=== PATIENT | male | born 1955 | race Two or more races ===

== ENCOUNTER → 2017-01-25 | Outpatient (REF) | payer OTHER ==
[2017-01-25 11:48] LABS: BASO % 0.6 % (0.0-1.0); EOS % 0.6 % (0.0-3.0); LYMPH # 1.1 10^3/uL (1.5-4.5); LYMPH % 32.2 % (24.0-44.0); MEAN CORPUSCULAR HEMOGLOBIN 31.2 pg (27.0-33.0); MEAN CORPUSCULAR HGB CONC 34.8 g/dl (32.0-36.5); MEAN CORPUSCULAR VOLUME 89.7 fl (80.0-96.0); MONO # 0.3 10^3/uL (0.0-0.8); MONO % 8.8 % (0.0-5.0); NEUTROPHILS % 57.8 % (36.0-66.0); PLATELET COUNT, AUTOMATED 242 10^3/uL (150-450); RED CELL DISTRIBUTION WIDTH 11.9 % (11.5-14.5); WHITE BLOOD COUNT 3.5 10^3/uL (4.0-10.0)
[2017-01-25 12:19] LABS: ALBUMIN 4.3 GM/DL (3.2-5.2); ALBUMIN/GLOBULIN RATIO 1.59 (1.00-1.93); ALKALINE PHOSPHATASE 67 U/L (45-117); ALT/SGPT 21 U/L (12-78); ANION GAP 7 MEQ/L (8-16); AST/SGOT 13 U/L (7-37); BILIRUBIN,TOTAL 0.7 MG/DL (0.2-1.0); BLOOD UREA NITROGEN 12 MG/DL (7-18); CARBON DIOXIDE LEVEL 27 MEQ/L (21-32); CHLORIDE LEVEL 104 MEQ/L (98-107); CHOLESTEROL LEVEL 159 MG/DL (<200); CREATININE FOR GFR 0.78 MG/DL (0.70-1.30); GLOMERULAR FILTRATION RATE > 60.0 (>49); GLUCOSE, FASTING 83 MG/DL (80-110); SODIUM LEVEL 138 MEQ/L (136-145); TRIGLYCERIDES LEVEL 29 MG/DL (<150)
== END ==
LOC: M SFHCCLAY 08:49
PROVIDERS: ATTEND Family Medicine
DX: D64.9 Anemia, unspecified (principal); Z13.220 Encounter for screening for lipoid disorders; Z12.5 Encounter for screening for malignant neoplasm of prostate
CPT/HCPCS: 80053; 80061; 83540; 85025; G0103

== ENCOUNTER 2018-06-05 10:03 | Inpatient (IN) | payer OTHER ==
[~2018-06-05] VITALS: Ht 170.2 cm; Wt 61.7 kg
--- NOTE | 2018-07-19 16:18 | HPE ---
DATE OF ADMISSION: 07/25/2018 CHIEF COMPLAINT: Left hip pain. HISTORY OF PRESENT ILLNESS: Melo is a pleasant, 62-year-old male with progressively worsening left hip pain and stiffness. He has failed to improve with conservative treatment. He has elected for surgery for his continued symptoms. He has pain with weightbearing activities and his activities of daily living. X-rays of his hip are notable for advanced osteoarthritis of the left hip joint. He has consented for a left total hip arthroplasty by Dr. Baldemar Harrison. Medical optimization was not requested. ALLERGIES: None. CURRENT MEDICATIONS: None. PAST MEDICAL HISTORY: None. PAST SURGICAL HISTORY: Right knee arthroscopy for medial meniscus debridement. SOCIAL HISTORY: This patient is retired. Does not smoke. Occasionally drinks alcohol. FAMILY HISTORY: Is noncontributory. REVIEW OF SYSTEMS: This patient denies chest pain, heart palpitations, cough, wheezing, difficulty breathing and shortness of breath. He denies abdominal pain, nausea, vomiting, diarrhea or constipation. He denies recent upper respiratory infection or urinary tract infection symptoms. He does complain of persistent pain in his left hip and pain with weightbearing activities of the left hip. PHYSICAL EXAMINATION: General: He is a well-developed, well-nourished, in no acute distress, alert male patient who ambulates with a mild limp favoring the left lower extremity. He is not using assistive devices. Vital signs: He is 67 inches tall, weighs 140 pounds with a temperature of 97.1, blood pressure 118/80, pulse of 56, and respirations of 16. Neck was supple without adenopathy or jugular venous distension. There were no carotid bruits appreciated upon auscultation. Lungs were clear to auscultation without rales or wheeze throughout. Heart: Regular rate and rhythm. Abdomen: Bowel sounds were present. Extremities: Examination of the hip revealed intact skin. He had decreased range of motion with internal, external rotation secondary to pain and stiffness. The leg was neurovascularly intact. LABORATORY DATA: EKG showed marked sinus bradycardia of 4 beats per minute. Chest x-ray showed no acute cardiopulmonary disease processes. ProTime was 13.2, INR 0.99. Glucose 85, BUN 11, creatinine 0.72, sodium 136, potassium 4.1. CBC showed a hematocrit of 39.9, otherwise within normal limits with a sed rate of 3. IMPRESSION: Symptomatic osteoarthritis of the left hip joint. PLAN: Consented for a left total hip by Dr. Baldemar Harrison. edited: 07/27/2018 1043 tkf MTDD
[2018-07-25] MEDS ORDERED: CelecoXIB 400 MG CAP PO ONE (06:00)
[2018-07-25] MEDS ORDERED: PREGABALIN 50 MG CAP (LYRICA) PO ONE (06:00)
[2018-07-25] MEDS ORDERED: LR 1,000 ML IV ONE (06:00)
[2018-07-25] MEDS ORDERED: LIDOCAINE 1% MDV 20ML VIAL SQ PRN (06:00)
[2018-07-25] MEDS ORDERED: PERCOCET 5MG/325MG TAB PO ONE (06:00)
[2018-07-25] MEDS ORDERED: MIDAZOLAM INJ 2 MG/2 ML VIAL (J2250) As Ordered ONE (12:28)
[2018-07-25] MEDS ORDERED: PROPOFOL 500 MG/50 ML VIAL As Ordered ONE (12:29)
[2018-07-25] MEDS ORDERED: ONDANSETRON 4MG/2ML VIAL (J2405) As Ordered ONE (12:31)
[2018-07-25] MEDS ORDERED: BUPIVACAINE HCL 0.5% 30 ML VIAL As Ordered ONE (12:34)
[2018-07-25] MEDS ORDERED: BUPIVACAINE/EPIN 0.25% 30 ML VIAL As Ordered ONE (12:38)
[2018-07-25] MEDS ORDERED: TRANEXAMIC ACID 100 MG/ML 10ML VIAL As Ordered ONE (12:38)
[2018-07-25] MEDS ORDERED: BUPIVACAINE LIPOSOME/PF 1.3% 20ML VIAL (13.3MG/ML)(EXPAREL)(C9290 PER1MG) As Ordered ONE (12:39)
[2018-07-25] MEDS ORDERED: BUPIVACAINE HCL 0.5% 10 ML VIAL As Ordered ONE (12:39)
[2018-07-25] MEDS ORDERED: EPINEPHrine INJ 1 MG/ML 1ML AMP As Ordered ONE (12:39)
[2018-07-25] MEDS ORDERED: ceFAZolin 1GM INJ (J0690 PER 500MG) As Ordered ONE (12:39)
[2018-07-25] MEDS ORDERED: LIDOCAINE 2% INJ 100 MG/5 ML SDV (FOR ANES.) As Ordered ONE (13:30)
[2018-07-25] MEDS ORDERED: ePHEDrine SULFATE 25 MG/5 ML(5MG/ML) SYRINGE As Ordered ONE (14:48)
[2018-07-25] MEDS ORDERED: PHENYLephrine HCL 500 MCG/5 ML (100MCG/ML) SYRINGE (J2370) As Ordered ONE (14:48)
[2018-07-25] MEDS ORDERED: fentaNYL 100 MCG/2 ML INJECTION (J3010) IV PRN (16:15)
[2018-07-25] MEDS ORDERED: PERCOCET 5MG/325MG TAB PO PRN (16:15)
[2018-07-25] MEDS ORDERED: oxyCODONE 5MG TAB PO PRN (16:15)
[2018-07-25] MEDS ORDERED: NORTRIPTYLINE 10 MG CAP PO PRN (16:15)
[2018-07-25] MEDS ORDERED: LR 1,000 ML IV SCH (16:15)
[2018-07-25] MEDS ORDERED: METOCLOPRAMIDE INJ 10MG/2ML VIAL (J2765) IV PRN (16:15)
[2018-07-25] MEDS ORDERED: ACETAMINOPHEN TAB 650MG DOSE (2X325MG) PO PRN (16:15)
[2018-07-25] MEDS ORDERED: PROMETHAZINE INJ 25 MG/ML VIAL (J2550) IV PRN ×2 (16:15)
[2018-07-25] MEDS ORDERED: FLEET ENEMA PR PRN (16:30)
[2018-07-25] MEDS ORDERED: CYCLOBENZAPRINE 10 MG TAB PO PRN (16:30)
[2018-07-25] MEDS ORDERED: HYDROMORPHONE HCL 0.5 MG/ 0.5 ML SYRINGE (J1170 PER 1) IV PRN (16:30)
--- NOTE | 2018-07-25 16:34 | REP ---
AP LATERAL LEFT HIP, TWO VIEWS: HISTORY: Post-op. The patient is status-post left total hip replacement. There is no acute fracture or dislocation. Subcutaneous air is present in the overlying soft tissue. IMPRESSION:The patient is status-post left total hip replacement. There is anatomic alignment. Electronically Signed by Uriel Russo MD 07/25/2018 04:39 P
[2018-07-25] MEDS ORDERED: RIVAROXABAN 10 MG TAB (XARELTO) PO SCH (18:00)
[2018-07-25] MEDS ORDERED: oxyCODONE 5MG TAB As Ordered ONE (18:07)
[2018-07-25 18:45] VITALS: BP 144/55
--- NOTE | 2018-07-25 18:48 | RO ---
DATE OF PROCEDURE: 07/25/2018 PREOPERATIVE DIAGNOSIS: Left hip severe degenerative change and arthritis/osteoarthritis of the left hip. POSTOPERATIVE DIAGNOSIS: Left hip severe degenerative change and arthritis/osteoarthritis of the left hip. PROCEDURE PERFORMED: Left total hip replacement. SURGEON: Dr. Baldemar Harrison DEBURRING AND TOOLING MACHINE OPERATOR: Dr. Eleanor Salcedo ANESTHESIA: Spinal. ESTIMATED BLOOD LOSS: Less than 50 mL, replaced with crystalloid. No complications. COMPONENTS USED: Include a DePuy Emmons hip system, size 6 femoral stem, size 8.5 neck length, size 36 mm ceramic femoral head, size 36 mm ALTRX acetabular liner, size 58 mm acetabular shell, apex hole eliminator. INDICATIONS: Progressive discomfort in the left hip. The patient has elected for operative intervention. Consent reviewed in detail with the patient including a nadine discussion of the pathology involved, the procedure proposed, alternatives including doing nothing, risks including but not limited to pain, failure, infection, bleeding, blood loss, incomplete relief of symptoms, need for additional surgery and other issues. The patient agrees to proceed. DESCRIPTION OF PROCEDURE: Identified in the holding area, site and side verified, brought to the operating room once spinal anesthesia was administered. We positioned him in the lateral decubitus position for a modified Hardinge approach of the left hip on the [place] frame. The patient was sterilely prepped, draped in the usual fashion. Next, time-out was accomplished. Next, once I and the plant technician were comfortable with the patient's positioning, he was sterilely prepped and draped in the usual fashion. The incision was 12 cm long, outlined with a marking pen, infiltrated with 0.25% Marcaine with epinephrine, made with a 10 blade knife, developed down through skin and subcuticular tissues to the lateral fascia. Lateral fascia was split parallel with its fibers. Next, once this was accomplished at the anterior one-third position, we developed an interval between the abductor mechanism. Dr. Salcedo secured Meyerding retractor, I split the capsule and minimus tissue with the Bovie cautery and released the abductor mechanism from the anterior trochanter, leaving a cuff of tissue for later repair, did utilize a tag stitch, continued the dissection inferiorly splitting the vastus lateralis and released the capsule so that the lesser trochanter could be palpated. Dr. Salcedo then positioned a bone hook and then we dislocated the hip in the usual fashion. Femoral head was grossly degenerative. Trochanteric retractors were placed. Canal opening reamer was utilized to open the canal, followed by the finding reamer, followed by the lateralizing reamer, followed by serial reaming through a size 6, which seemed to fit appropriately. The neck template was installed. I utilized the oscillating saw to make the femoral neck cut, femoral head was removed. The cut was about one-half fingerbreadth from the lesser trochanter. Next, once this was accomplished, we positioned the hip out of the bag for exposure of the acetabulum. Anterior and posterior retractors were placed. Next, acetabular labrum was removed and the acetabular fossa was cleared of soft tissue. Transverse acetabular ligament was also released. This improved the acetabular exposure. Acetabular reaming was accomplished beginning with a size 50 and progressing through a size 57. We placed a trial size 58 acetabular shell, which seemed to fit appropriately. Next, we selected a size 58 non-trial acetabular shell, selected a sector cup in case we felt the need to place acetabular screws. The targeting device was utilized to assist cup placement. Irrigation was accomplished, TXA was placed in the wound. The acetabular shell was placed and impacted into place. We verified the shell was in the floor of the acetabulum, placed the apex hole eliminator. Next, the polyethylene liner, non-trial, was then installed. Next, we then turned our attention to the femoral side. The size 6 broach was installed. We trialed with a size +5 and also an 8.5 with a 36 mm head standard offset seemed to fit appropriately, providing stability, good alignment, good length. We selected that +8.5. Next, the hip was again dislocated by Dr. Salcedo. I then removed the trial stem, the femoral head. We then irrigated. I also instilled approximately 30 mL of Exparel in around the hip capsule at this stage. Next, non-trial femoral stem was obtained, installed, tamped into place. Non-trial ceramic femoral head was installed, tamped into place, hip was again reduced, again placed through a range of motion, appreciated to be extremely stable. Irrigation was again accomplished. Capsule and minimus tissues were reapproximated with interrupted stitch. Medius/abductor mechanism was reapproximated with interrupted and mattress stitches. Vastus lateralis was reapproximated with a running stitch, lateral fascia was approximated with interrupted stitch and a Stratafix stitch. Next, Gracie's fascia and deep dermis were reapproximated with interrupted stitch. Prineo dressing was utilized on the skin. The patient was log-rolled to the supine position and able to be moved to the hospital bed in good condition at the conclusion of the case. For further details, please refer to the medical record. Dr. Eleanor Salcedo was present and participated in the entirety of the case. Incidentally, Mr. Hughes was present for this case, our physician medical receptionist assistant, assisted on the back table, so we did not require a second surgical scrub.
[2018-07-25 19:15] VITALS: BP 126/79
[2018-07-25] MEDS: ASCORBIC ACID 500 MG TAB PO SCH (20:13)
[2018-07-25] MEDS: LR 1,000 ML IV SCH (20:15)
[2018-07-25] MEDS: PERCOCET 5MG/325MG TAB PO PRN (21:58)
[2018-07-26] MEDS: LR 1,000 ML IV SCH (03:02)
[2018-07-26 05:05] VITALS: BP 100/60
[2018-07-26 05:19] VITALS: BP 93/55
[2018-07-26 06:00] LABS: HEMATOCRIT 28.5 % (42.0-52.0); HEMOGLOBIN 9.8 g/dl (13.5-17.5); MEAN CORPUSCULAR HEMOGLOBIN 31.7 pg (27.0-33.0); MEAN CORPUSCULAR HGB CONC 34.4 g/dl (32.0-36.5); MEAN CORPUSCULAR VOLUME 92.2 fl (80.0-96.0); PLATELET COUNT, AUTOMATED 137 10^3/uL (150-450); RED BLOOD COUNT 3.09 10^6/uL (4.30-6.10); WHITE BLOOD COUNT 6.9 10^3/uL (4.0-10.0)
[2018-07-26] MEDS: PERCOCET 5MG/325MG TAB PO PRN (07:12)
[2018-07-26] MEDS ORDERED: XARE10TA PO (07:57)
[2018-07-26] MEDS ORDERED: PERC5TAB12 PO (07:57)
[2018-07-26] MEDS ORDERED: MOM 30ML SUSPENSION UDC PO SCH (09:00)
[2018-07-26] MEDS ORDERED: CelecoXIB 400 MG CAP PO ONE (09:00)
[2018-07-26] MEDS ORDERED: MIRALAX *UNIT DOSE* 17GM PACKET PO SCH (09:00)
[2018-07-26] MEDS: ASCORBIC ACID 500 MG TAB PO SCH (10:00)
[2018-07-26] MEDS ORDERED: RIVAROXABAN 10 MG TAB (XARELTO) PO SCH (18:00)
== END 2018-07-26 10:45 | disposition home or self-care (01) | DRG 470 ==
LOC: M OR 07-25 11:48 → M MS5PR 07-25 18:35
PROVIDERS: ADMIT Orthopaedic Surgery; ATTEND Orthopaedic Surgery
PROC: 0SRB04Z Replacement of Left Hip Joint with Ceramic on Polyethylene Synthetic Substitute, Open Approach (ICD-10-PCS; principal; 2018-07-25 13:30)
DX: M16.12 Unilateral primary osteoarthritis, left hip (principal)

== ENCOUNTER → 2018-06-13 | Outpatient (CLI) | payer OTHER ==
[2018-06-13 11:03] LABS: HEMATOCRIT 39.9 % (42.0-52.0); HEMOGLOBIN 13.8 g/dl (13.5-17.5); MEAN CORPUSCULAR HEMOGLOBIN 31.8 pg (27.0-33.0); MEAN CORPUSCULAR HGB CONC 34.6 g/dl (32.0-36.5); MEAN CORPUSCULAR VOLUME 91.9 fl (80.0-96.0); PLATELET COUNT, AUTOMATED 239 10^3/uL (150-450); RED BLOOD COUNT 4.34 10^6/uL (4.30-6.10); WHITE BLOOD COUNT 5.4 10^3/uL (4.0-10.0)
[2018-06-13 11:13] LABS: INR 0.99; PROTHROMBIN TIME 13.2 SECONDS (12.1-14.4)
[2018-06-13 11:34] LABS: ALBUMIN 4.3 GM/DL (3.2-5.2); ALT/SGPT 21 U/L (12-78); BILIRUBIN,TOTAL 0.8 MG/DL (0.2-1.0); BLOOD UREA NITROGEN 11 MG/DL (7-18); CALCIUM LEVEL 9.2 MG/DL (8.8-10.2); CARBON DIOXIDE LEVEL 29 MEQ/L (21-32); CHLORIDE LEVEL 102 MEQ/L (98-107); CREATININE FOR GFR 0.72 MG/DL (0.70-1.30); GLOMERULAR FILTRATION RATE > 60.0 (>49); GLUCOSE, FASTING 85 MG/DL (70-100); POTASSIUM SERUM 4.1 MEQ/L (3.5-5.1); SODIUM LEVEL 136 MEQ/L (136-145); TOTAL PROTEIN 6.8 GM/DL (6.4-8.2)
[2018-06-13 12:01] LABS: ERYTHROCYTE SEDIMENTATION RATE 3 mm/hr (0-20)
--- NOTE | 2018-06-13 21:41 | ECGEPIP ---
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
--- NOTE | 2018-06-14 02:35 | REP ---
Clinical: Preoperative assessment. . Comparison: None . Technique: PA and lateral. Findings: The mediastinum and cardiac silhouette are normal. Airway is patent and midline. The lung curry are clear and without acute consolidation, effusion, or pneumothorax. The skeletal structures are intact and normal. Impression: 1. No acute cardiopulmonary process. Electronically Signed by Cem Rizo MD 06/14/2018 02:27 A
== END ==
LOC: M LAB 10:32
PROVIDERS: ATTEND Orthopaedic Surgery
DX: Z01.818 Encounter for other preprocedural examination (principal); M25.552 Pain in left hip

== ENCOUNTER → 2019-02-15 | Outpatient (CLI) | payer BC ==
[~2019-02-15] MED LIST: PERC5TAB12 PO; XARE10TA PO
--- NOTE | 2019-02-15 09:52 | REP ---
Clinical: Preoperative assessment . Comparison: 06/13/2018 . Technique: PA and lateral. Findings: The mediastinum and cardiac silhouette are normal. The lung curry are clear and without acute consolidation, effusion, or pneumothorax. The skeletal structures are intact and normal. Impression: 1. No acute cardiopulmonary process. Electronically Signed by Cem Rizo MD 02/15/2019 09:44 A
[2019-02-15 10:03] LABS: HEMOGLOBIN 14.4 g/dl (13.5-17.5); MEAN CORPUSCULAR HEMOGLOBIN 30.8 pg (27.0-33.0); MEAN CORPUSCULAR HGB CONC 32.7 g/dl (32.0-36.5); MEAN CORPUSCULAR VOLUME 94.2 fl (80.0-96.0); PLATELET COUNT, AUTOMATED 250 10^3/uL (150-450); RED BLOOD COUNT 4.67 10^6/uL (4.30-6.10); WHITE BLOOD COUNT 4.8 10^3/uL (4.0-10.0)
[2019-02-15 10:10] LABS: INR 1.1; PROTHROMBIN TIME 13.9 SECONDS (11.8-14.0)
[2019-02-15 10:27] LABS: ALBUMIN 4.2 GM/DL (3.2-5.2); ALT/SGPT 30 U/L (12-78); BILIRUBIN,TOTAL 0.9 MG/DL (0.2-1.0); BLOOD UREA NITROGEN 12 MG/DL (7-18); CALCIUM LEVEL 9.2 MG/DL (8.8-10.2); CARBON DIOXIDE LEVEL 26 MEQ/L (21-32); CHLORIDE LEVEL 105 MEQ/L (98-107); CREATININE FOR GFR 0.88 MG/DL (0.70-1.30); GLOMERULAR FILTRATION RATE > 60.0 (>49); GLUCOSE, FASTING 86 MG/DL (70-100); POTASSIUM SERUM 3.9 MEQ/L (3.5-5.1); SODIUM LEVEL 138 MEQ/L (136-145); TOTAL PROTEIN 7.2 GM/DL (6.4-8.2)
[2019-02-15 10:41] LABS: ERYTHROCYTE SEDIMENTATION RATE 2 mm/hr (0-20)
--- NOTE | 2019-02-15 20:39 | ECGEPIP ---
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
== END ==
LOC: M LAB 08:58
PROVIDERS: ATTEND Orthopaedic Surgery
DX: Z01.818 Encounter for other preprocedural examination (principal); M25.551 Pain in right hip; R94.31 Abnormal electrocardiogram [ECG] [EKG]

== ENCOUNTER 2019-02-26 05:51 | Inpatient (IN) | payer BC, OTHER ==
--- NOTE | 2019-02-22 12:16 | HPE ---
DATE OF ADMISSION: 02/26/2019 ATTENDING PHYSICIAN: Dr. Harrison CHIEF COMPLAINT: Right hip pain and stiffness. HISTORY: This is a pleasant 63-year-old male patient with progressively worsening right hip pain and stiffness. He failed to improve with conservative management. He has elected for surgery for his continued symptoms. He has consented for a right total hip arthroplasty by Dr. Harrison. X-rays of the right hip notable for end-stage degenerative changes of the right hip. CURRENT MEDICATIONS: None. ALLERGIES: NO KNOWN DRUG ALLERGIES. MEDICAL CONDITIONS: Symptomatic osteoarthritis of the right hip, anemia. PAST SURGERIES: Includes right knee scope and left total hip arthroplasty. FAMILY HISTORY: Colon cancer, elevated cholesterol, and hypertension. SOCIAL HISTORY: He does smoke and he occasionally uses alcohol. He is currently retired. REVIEW OF SYSTEMS: Denies fever or chills. Denies chest pain, shortness breath or cough. He had an upper respiratory infection (URI) about 1 week ago and he was seen by his primary and felt that there was no need to delay surgery for the URI. Denies any urinary tract infection (UTI) symptoms. Denies nausea or vomiting. Has persistent pain in his hip. EXAM: Today reveals an alert, well-nourished, well-developed male patient who walks with a limping gait favoring his right side. His mood and affect appropriate. Exam of the right hip reveals skin to be intact. No erythema, edema or ecchymosis. There is irritability on hip range of motion decreased internal-external rotation on exam. Straight leg raise testing is negative. The right leg is intact to light touch. Neck is supple without adenopathy or jugular venous distention (JVD). Lungs are clear to auscultation without rales or wheeze. Heart regular rate and rhythm. Abdomen: Bowel sounds are present. Height 5 foot 7, weight 145 pounds. Temperature 97.5. Blood pressure 127/87. Pulse 54. Respirations 10. LABORATORY DATA: PT of 13.9, INR 1.10. Sed rate of 2. WBC count of 4.8, RBC count 4.6, hemoglobin 14.4, hematocrit 44.0. Glucose 86. BUN 12, creatinine 0.88. Sodium 138, potassium 3.9. EKG: Sinus bradycardia with premature ventricular contractions (PVCs). Chest X-ray: No acute cardiopulmonary disease process noted. IMPRESSION: Symptomatic osteoarthritis of right hip. PLAN: He has consented by Dr. Harrison for a right total hip arthroplasty. The patient was counseled to avoid any nonsteroidal anti-inflammatory drugs (NSAIDs) 5 days prior to surgery. He is not taking any current medications, so he will be nothing by mouth after midnight. He understands the plan. All of his questions are answered. BRIAN
[2019-02-26] VITALS (7 sets, daily range): BP systolic 114–131; BP diastolic 67–75
[~2019-02-26] VITALS: Ht 170.2 cm; Wt 66.6 kg
[2019-02-26] MEDS ORDERED: PREGABALIN 100 MG CAP (LYRICA) PO ONE (06:00)
[2019-02-26] MEDS ORDERED: PERCOCET 5MG/325MG TAB PO ONE (06:00)
[2019-02-26] MEDS ORDERED: LIDOCAINE 1% MDV 20ML VIAL SQ PRN (06:00)
[2019-02-26] MEDS ORDERED: CelecoXIB 400 MG CAP PO ONE (06:00)
[2019-02-26] MEDS ORDERED: ceFAZolin SOD 2 GM in IV 1 EA IV ONE (06:00)
[2019-02-26] MEDS ORDERED: LR 1,000 ML IV ONE (06:00)
[2019-02-26] MEDS ORDERED: PREGABALIN 50 MG CAP (LYRICA) PO ONE (06:00)
[2019-02-26] MEDS ORDERED: LIDOCAINE 2% INJ 100 MG/5 ML SDV (FOR ANES.) As Ordered ONE ×2 (06:17→06:18)
[2019-02-26] MEDS ORDERED: ONDANSETRON 4MG/2ML VIAL (J2405) As Ordered ONE ×2 (06:17→11:06)
[2019-02-26] MEDS ORDERED: propofoL 200 MG/20 ML VIAL As Ordered ONE ×2 (06:17→09:34)
[2019-02-26] MEDS ORDERED: dexameTHASONE 4 MG/ML 1ML VIAL (J1100) As Ordered ONE (06:17)
[2019-02-26] MEDS ORDERED: MIDAZOLAM INJ 2 MG/2 ML VIAL (J2250) As Ordered ONE ×2 (06:27→08:14)
[2019-02-26] MEDS ORDERED: fentaNYL 100 MCG/2 ML INJECTION (J3010) As Ordered ONE (06:28)
[2019-02-26] MEDS ORDERED: BUPIVACAINE/EPIN 0.25% 30 ML VIAL As Ordered ONE (07:09)
[2019-02-26] MEDS ORDERED: TRANEXAMIC ACID 100 MG/ML 10ML VIAL As Ordered ONE (07:09)
[2019-02-26] MEDS ORDERED: BUPIVACAINE HCL 0.5% 10 ML VIAL As Ordered ONE (07:09)
[2019-02-26] MEDS ORDERED: ceFAZolin 1GM INJ (J0690 PER 500MG) As Ordered ONE (07:09)
[2019-02-26] MEDS ORDERED: BUPIVACAINE LIPOSOME/PF 1.3% 20ML VIAL (13.3MG/ML)(EXPAREL)(C9290 PER1MG) As Ordered ONE (07:10)
[2019-02-26] MEDS ORDERED: EPINEPHrine INJ 1 MG/ML 1ML VIAL As Ordered ONE (07:10)
[2019-02-26] MEDS ORDERED: LR 1,000 ML IV SCH (10:45)
[2019-02-26] MEDS ORDERED: HYDROMORPHONE HCL 0.5 MG/ 0.5 ML SYRINGE (J1170 PER 1) IV PRN ×3 (10:45→11:00)
[2019-02-26] MEDS ORDERED: fentaNYL 100 MCG/2 ML INJECTION (J3010) IV PRN (10:45)
[2019-02-26] MEDS ORDERED: oxyCODONE 5MG TAB PO PRN (10:45)
[2019-02-26] MEDS: LR 1,000 ML IV SCH ×2 (11:00→21:14)
[2019-02-26] MEDS ORDERED: PROMETHAZINE INJ 25 MG/ML VIAL (J2550) IV PRN (11:00)
[2019-02-26] MEDS ORDERED: PERCOCET 5MG/325MG TAB PO PRN ×2 (11:00)
[2019-02-26] MEDS ORDERED: ONDANSETRON 4MG/2ML VIAL (J2405) IV PRN (11:15)
--- NOTE | 2019-02-26 11:20 | REP ---
Right hip: Three views. History: Postop. Findings: AP and cross-table lateral views of the right hip demonstrate right hip arthroplasty components in good position. Electronically Signed by Gabriel Snow MD 02/26/2019 11:11 A
[2019-02-26] MEDS: ceFAZolin SOD 2 GM in IV 1 EA IV SCH (15:31)
[2019-02-27] MEDS: ceFAZolin SOD 2 GM in IV 1 EA IV SCH (00:26)
[2019-02-27 02:00] VITALS: BP 110/74
[2019-02-27 06:00] VITALS: BP 96/54
[2019-02-27] MEDS ORDERED: XARE10TA PO (06:21)
[2019-02-27] MEDS ORDERED: PERC5TAB12 PO (06:21)
[2019-02-27] MEDS ORDERED: MIRALAX *UNIT DOSE* 17GM PACKET PO SCH (09:00)
--- NOTE | 2019-02-27 10:35 | RO ---
DATE OF PROCEDURE: 02/26/2019 PREOPERATIVE DIAGNOSIS: Right hip osteoarthritis. POSTOPERATIVE DIAGNOSIS: Right hip osteoarthritis. PROCEDURE PERFORMED: Right total hip arthroplasty. SURGEON: Dr. Baldemar Harrison PATIENT FINANCIAL COORDINATOR: TREMAYNE Valles ANESTHESIA: Spinal. ESTIMATED BLOOD LOSS: Less than 60 mL, replaced with crystalloid. COMPLICATIONS: No complications. INDICATIONS: Progressive discomfort in the right hip and radiographic evidence of severe arthritic changes, including decreased joint space and large osteophyte formation, previous hip replacement on the contralateral left side, did well. Consent reviewed in detail with this gentleman, including a nadine discussion of the pathology involved, the procedure proposed, alternatives, including doing nothing and risks, including but not limited to, pain, failure, infection, bleeding, blood loss, dislocation, need for additional surgery and other issues. The patient elects for a ceramic bearing surface. COMPONENTS USED: DePuy/J and J [place], size 6 femoral stem, +8.5 mm neck length, 36 mm ceramic femoral head, 36 mm ALTRX acetabular polyethylene liner, 58 mm acetabulum apex hole eliminator. DESCRIPTION OF PROCEDURE: Identified in the holding area, site and side verified, brought to the operating room. He was positioned in the lateral decubitus position for exposure of the right hip for the modified [place] approach. Next, once I and the rn internship were comfortable with the patient's positioning, he was then sterilely prepped and draped in the usual fashion. Next, time-out was accomplished. Next, the line of the incision was infiltrated with 0.25% Marcaine with epinephrine by Mr. Hughes. Next, we utilized sterile arthroplasty suits for this procedure. Next, I stood on the patient's posterior, Mr. Hughes on the anterior. Next, incision was made with a 10 blade knife developed down through skin and subcuticular tissues and some lateral fascia. Soft tissue was cleared from the lateral fascia, split was created in the lateral fascia parallel to its fibers and continued proximally and distally using the Sylvester scissor. This exposed the abductor mechanism. Split was created with my fingers and the abductor mechanism at the anterior one-third position along the femoral neck exposing the femoral capsule and minimus tissue. were utilized to help with exposure. I then utilized the hot knife to split the hip capsule down to the acetabular labrum, as well as releasing the anterior abductor mechanism, leaving a cuff of soft tissue on the greater trochanter. Abductor mechanism was tagged. The dissection continued along the femoral neck and inferiorly through the hip capsule and splitting the vastus lateralis at the proximal aspects so that I could palpate the lesser trochanter. Next, once this was accomplished, I utilized the bone hook and Mr. Hughes manipulated the extremity to dislocate the hip. We placed the appropriate retractors. I then utilized the canal opening reamer, followed by the canal finding reamer, followed by the lateralizing reamer, followed by the conical reamers through a size 6. The 6 seemed to fit appropriately. 6 was the size we used on the contralateral side as well. Next, once this was accomplished, neck cutting template was applied, and then I made the neck cut using oscillating saw, removed the femoral head, which was quite arthritic. Next, I palpated the lesser trochanter, distance to the lesser trochanter was less than one fingerbreadth. Next, I then utilized the padded box sewer, followed by the femoral broaches. We broached from a size 3 through a size 6. The size 6 seemed to fit appropriately, but I did utilize the calcar planer to remove about 3 mm from the femoral neck length, half fingerbreadth to palpate the lesser trochanter at that point. Next, once this was accomplished, the broaches were removed. Irrigation was accomplished. I then positioned the anterior and posterior retractors for exposure of the acetabulum. Next, Mr. Hughes secured the retractors, and I utilized the hot knife to remove acetabular labrum to clear the acetabular fossa and remove the transverse acetabular ligament. Next, once this was accomplished, I then utilized the hemispherical reamers beginning in a size 48 and reaming through a size 57 reamer. We medialized the floor of the acetabulum and then reamed so that the 57 fit to the acetabular rim. I then trialed the 58 mm using the targeting device that was implanted and fit securely. Next, once this was accomplished, irrigation was accomplished with pulse lavage. I also utilized Exparel solution, which was injected at this stage around the hip capsule for perioperative pain control. Next, non trial acetabular shell was then implanted using the targeting device into the floor of the acetabulum. Good rim fit was appreciated. It was appreciated to be secure. [place] hole eliminator was installed. A non trial 36 mm inner diameter polyethylene was installed. I inspected the alignment of the acetabular shell and it looked good. Next, we then repositioned the extremity. Niru Ellen helped with that. I placed the appropriate retractors. I placed the trial 6 broach. We trialed with a +5 and +8.5. The +8.5 seemed to fit with the best soft tissue tension. We also placed the hip through a range of motion, including internal rotation and flexion, as well as external rotation and extension and the hip seemed to be stable. Next, these trial components were then removed. Irrigation was again accomplished using pulse lavage. Non trial standard offset +8.5 components were then implanted, including the 36 mm femoral head, which was tamped into place gently. Next, I then reduced the hip with the assistance of Mr. Hughes on the leg. Next, irrigation was accomplished. I allowed TXA solution to stand for approximately 1 minute and then began the closure of the soft tissues. Minimus capsule and minimus tissues were reapproximated using interrupted stitch. The medius tissue was reapproximated to the cuff tissue on the greater trochanter using interrupted and mattress stitches. The vastus lateralis was reapproximated using interrupted and running stitch. The lateral fascia was reapproximated with interrupted stitch and Stratafix stitch. The deep dermis was approximated using interrupted stitch. Pernio dressing was applied. The patient was then able to be moved to the hospital bed and moved to the recovery room in good condition. For further details, please refer to medical record.
[2019-02-27] MEDS ORDERED: RIVAROXABAN 10 MG TAB (XARELTO) PO ONE (18:00)
[2019-02-27] MEDS ORDERED: RIVAROXABAN 10 MG TAB (XARELTO) PO SCH ×2 (18:00)
--- NOTE | 2019-03-01 14:59 | DSES ---
DATE OF ADMISSION: 02/26/2019 DATE OF DISCHARGE: 02/27/2019 ATTENDING PHYSICIAN: Dr. Baldemar Harrison ADMISSION DIAGNOSIS: Osteoarthritis right hip. OTHER DIAGNOSIS: Anemia. DISCHARGE DIAGNOSIS: Osteoarthritis right hip status post right total hip arthroplasty. OPERATION PERFORMED: Right total hip arthroplasty. HISTORY: This is a 63-year-old male patient with progressively worsening right hip pain and stiffness. He failed to improve with conservative management. He was elected for surgery for his continued symptoms. He was admitted for elective hip replacement on right side. HOSPITAL COURSE: The patient was admitted on day of surgery and underwent a right total hip arthroplasty which was uneventful. He did well in the postoperative period. His hospital course was without complications. He was up with physical therapy per their protocol. His pain was controlled. On day of discharge, he was doing well weightbearing as tolerated on his right lower extremity. He will use oral pain medications for pain control. He will use thromboembolic deterrent stockings (TEDS) for 30 days postoperative for deep venous thrombosis (DVT) prophylaxis. He will also use Xarelto 10 mg per their protocol for DVT prophylaxis. He will resume his preoperative medications and diet. He will followup in our office in 10-14 days for surgical followup. He was given instructions to include but not limited to wound monitoring activity limitations. Please refer the medical record further details.
== END 2019-02-27 10:05 | disposition home or self-care (01) | DRG 301 ==
LOC: M OR 05:51 → M MS5PR 11:25
PROVIDERS: ADMIT Orthopaedic Surgery; ATTEND Orthopaedic Surgery
PROC: 0SR904A Replacement of Right Hip Joint with Ceramic on Polyethylene Synthetic Substitute, Uncemented, Open Approach (ICD-10-PCS; principal; 2019-02-26 07:30)
DX: M16.11 Unilateral primary osteoarthritis, right hip (principal); B00.1 Herpesviral vesicular dermatitis; F17.200 Nicotine dependence, unspecified, uncomplicated

== ENCOUNTER → 2019-10-25 | Outpatient (CLI) | payer MEDICARE ==
[~2019-10-25] MED LIST changes: +PROT1TAB2 PO
--- NOTE | 2019-11-15 07:33 | REP ---
GALLBLADDER ULTRASOUND: 10/25/19 CLINICAL: Right upper quadrant pain x1 week. TECHNIQUE: Real time walker scale and color evaluation using curved array transducer. FINDINGS: The liver demonstrates a 3.4 x 2.4 x 4.0cm hypoechoic subcapsular mass along the anterior right lobe which is otherwise non-specific in appearance and demonstrates subtle vascularity. There is a 5.3 x 3.0 x 4.6cm lobulated hyperechoic mass with two hypoechoic central components in the posterior segment of the right lobe as well. These findings require further investigation including pre and post contrast CT or MRI. Differential diagnosis includes but is not limited to hemangioma and fibroadenoma. The pancreas is incompletely evaluated due to interposed bowel gas but the visualized portions appear normal. The gallbladder is unremarkable and without gallstones, wall thickening or pericholecystic fluid. Sonographic [place] sign was elicited. No biliary ductal dilatation was appreciated and the common bile duct measures 2.3mm diameter. The right kidney is normal in reniform shape and appearance without hydronephrosis and measures 10.4 x 5.6 x 4.1cm. IMPRESSION: 1. Lesions within the liver as described above are non-specific. Pre and post contrast CT or MRI should be considered for further investigation. 2. No gallbladder and biliary system. MTDD
== END ==
LOC: M RAD 08:45
PROVIDERS: ATTEND Family Medicine
DX: K76.9 Liver disease, unspecified (principal); R10.11 Right upper quadrant pain

== ENCOUNTER → 2019-10-30 | Outpatient (REF) | payer MEDICARE ==
[2019-10-30 12:24] LABS: BASO # 0.1 10^3/uL (0.0-0.2); EOS # 0.1 10^3/uL (0.0-0.5); EOS % 1.4 % (0.0-3.0); HEMATOCRIT 39.8 % (42.0-52.0); HEMOGLOBIN 13.6 g/dl (13.5-17.5); LYMPH # 1.1 10^3/uL (1.5-5.0); LYMPH % 22.4 % (24.0-44.0); MEAN CORPUSCULAR HEMOGLOBIN 31.3 pg (27.0-33.0); MEAN CORPUSCULAR HGB CONC 34.2 g/dl (32.0-36.5); MEAN CORPUSCULAR VOLUME 91.7 fl (80.0-96.0); MONO # 0.5 10^3/uL (0.0-0.8); MONO % 10.1 % (0.0-5.0); NEUTROPHILS # 3.2 10^3/uL (1.5-8.5); NEUTROPHILS % 64.9 % (36.0-66.0); PLATELET COUNT, AUTOMATED 245 10^3/uL (150-450); RED BLOOD COUNT 4.34 10^6/uL (4.30-6.10)
[2019-10-30 12:38] LABS: ALBUMIN 3.9 GM/DL (3.2-5.2); ALT/SGPT 24 U/L (12-78); BILIRUBIN,TOTAL 0.6 MG/DL (0.2-1.0); BLOOD UREA NITROGEN 7 MG/DL (7-18); CALCIUM LEVEL 8.9 MG/DL (8.8-10.2); CARBON DIOXIDE LEVEL 26 MEQ/L (21-32); CHLORIDE LEVEL 100 MEQ/L (98-107); CREATININE FOR GFR 0.72 MG/DL (0.70-1.30); GLOMERULAR FILTRATION RATE > 60.0 (>49); GLUCOSE, FASTING 87 MG/DL (70-100); POTASSIUM SERUM 4.4 MEQ/L (3.5-5.1); SODIUM LEVEL 133 MEQ/L (136-145); TOTAL PROTEIN 6.7 GM/DL (6.4-8.2)
== END ==
LOC: M SFHCCLAY 11:48
PROVIDERS: ATTEND Family Medicine
DX: R10.11 Right upper quadrant pain (principal); R93.2 Abnormal findings on diagnostic imaging of liver and biliary tract

== ENCOUNTER → 2019-11-08 | Outpatient (CLI) | payer MEDICARE ==
[~2019-11-08] MED LIST changes: +PROHANCE 279.3MG/ML 15ML VIAL As Ordered ONE
--- NOTE | 2019-11-15 07:35 | REP ---
MRI ABDOMEN WITH AND WITHOUT CONTRAST HISTORY: Liver lesions on ultrasound 10/25/2019, right upper quadrant pain. COMPARISON: Ultrasound 10/25/2019. TECHNIQUE: Multiple sequences obtained in the axial and coronal planes prior to and following the intravenous administration of 12 mL ProHance. FINDINGS: The liver is normal in size. In the medial segment of the left lobe of the liver anteriorly in a subcapsular location, there is a nodule measuring 3 cm in diameter. This is low in signal on T1 and is heterogeneous in signal on T2, with predominantly heterogeneous increased signal. There is heterogeneous enhancement following the intravenous (IV) administration of contrast with early peripheral rim enhancement, which persists on delayed phases of postcontrast imaging. Internally, there is some heterogeneous delayed enhancement. The findings are suspicious for malignant neoplasm and probably a metastasis. In the posterior segment of the right lobe of the liver, there is a hyperintense lesion on T2, which is hypointense on T1. This measures approximately 4.3 x 2.5 cm. This demonstrates peripheral nodular enhancement on initial post contrast images and gradually fills in with contrast on the more delayed images consistent with a hemangioma. There is an adjacent subcentimeter hemangioma in a subcapsular location in the posterior segment of the right lobe of the liver, at the level of the superior aspect of the large hemangioma. Even more superiorly in the posterior segment in the right lobe of the liver laterally, there is a subcentimeter hemangioma in a subcapsular location. No other liver lesion is seen. There is no evidence of intrahepatic or extrahepatic biliary dilatation. The gallbladder is grossly unremarkable. The spleen is normal in size with no intrinsic abnormality. The adrenal glands demonstrate no mass. Pancreas demonstrates no mass. There is a small cyst in the lower pole of the right kidney less than 1 cm in diameter. There is no hydronephrosis. There is extensive periaortic adenopathy diffusely predominantly in the upper abdomen. Lymph nodes are fairly confluent in appearance. Largest lymph node in the periaortic region is between the abdominal aorta and inferior vena cava and measures 3.1 x 1.8 cm. There is portal adenopathy with a few enlarged portal lymph nodes present, the largest measuring 2.6 x 2.1 cm. I see no free fluid. IMPRESSION: Suspicious liver lesion left lobe in a subcapsular location measures approximately 3 cm in diameter. I suspect this represents a metastatic lesion. No other suspicious liver lesion is seen. There are three hemangiomas in the right lobe of the liver as discussed above. Extensive confluent adenopathy in the periaortic region with the largest lymph node in the aortocaval region measuring 3.1 x 1.8 cm. There is portal adenopathy with the largest lymph node in that region 2.6 x 2.1 cm. MTDD
== END ==
LOC: M RAD 07:10
PROVIDERS: ATTEND Family Medicine
DX: R10.11 Right upper quadrant pain (principal); R93.2 Abnormal findings on diagnostic imaging of liver and biliary tract; K76.89 Other specified diseases of liver; D18.03 Hemangioma of intra-abdominal structures
CPT/HCPCS: 74183; A9576

== ENCOUNTER → 2019-11-20 | Outpatient (REF) | payer MEDICARE ==
[~2019-11-20] MED LIST changes: -PROHANCE 279.3MG/ML 15ML VIAL As Ordered ONE; -PROT1TAB2 PO
[2019-11-20 14:05] LABS: CA19-9 TUMOR MARKER,CARBOHYDRA 24.4 U/ML (<35.0)
[2019-11-21 23:12] LABS: PSA TOTAL 0.7 ng/mL (0.0-4.0)
== END ==
LOC: M LABDRAWC 11:07
PROVIDERS: ATTEND Surgery
DX: D37.6 Neoplasm of uncertain behavior of liver, gallbladder and bile ducts (principal); R97.20 Elevated prostate specific antigen [PSA]

== ENCOUNTER → 2019-11-26 | Outpatient (REF) | payer MEDICARE ==
[2019-11-26 12:29] LABS: INR 0.93; PROTHROMBIN TIME 12.6 SECONDS (12.5-14.3)
[2019-11-26 12:30] LABS: PARTIAL THROMBOPLASTIN TIME 36.9 SECONDS (24.2-38.5)
== END ==
LOC: M LABDRAWC 11:21
PROVIDERS: ATTEND Surgery
DX: Z01.818 Encounter for other preprocedural examination (principal); Z79.01 Long term (current) use of anticoagulants

== ENCOUNTER → 2019-11-29 | Outpatient (CLI) | payer MEDICARE ==
[~2019-11-29] MED LIST changes: +LIDOCAINE 1% MDV 20ML VIAL As Ordered ONE; +PROT1TAB2 PO; +SODIUM BICARBONATE 8.4% INJ 50MEQ 50 ML VIAL As Ordered ONE
[2019-11-29 12:00] VITALS: BP 132/77
--- NOTE | 2019-11-29 14:26 | REP ---
INDICATION: DISEASE OF LIVER LIVER LESION LT LOBE COMPARISON: Patient has a history of a 3.4 x 2.4 x 4.0 hypoechoic subcapsular mass in the left lobe of the liver, that was seen on an ultrasound dated 10/25/2019.. TECHNIQUE: The procedure was performed by HEENA Miranda, under the direct supervision of Dr. Snow. The risks and benefits of the procedure were explained to the patient and an informed consent was obtained both verbally and written. Directly prior to the start of the procedure a formal time-out was completed in the procedure room. FINDINGS: The left lobe liver mass was localized using ultrasound guidance. The skin was prepped and draped in a sterile fashion. Approximately 15 mL of buffered lidocaine was used as a local anesthetic. Using ultrasound guidance a 19/20 gauge coaxial needle biopsy system was inserted and advanced into the liver mass. Six core biopsy samples were obtained and sent to the lab for further analysis. The patient tolerated the procedure extremely well and there were no immediate complications. After the appropriate amount of monitored convalescence the patient was discharged from the department. IMPRESSION: Unremarkable ultrasound guided liver biopsy. <Electronically signed by Navdeep Snow > 11/29/19 [id number]
== END ==
LOC: M IRPRO 08:15
PROVIDERS: ATTEND Surgery
DX: C78.7 Secondary malignant neoplasm of liver and intrahepatic bile duct (principal); K76.89 Other specified diseases of liver

== ENCOUNTER → 2019-12-15 | Outpatient (CLI) | payer MEDICARE ==
[~2019-12-15] MED LIST changes: -LIDOCAINE 1% MDV 20ML VIAL As Ordered ONE; -SODIUM BICARBONATE 8.4% INJ 50MEQ 50 ML VIAL As Ordered ONE
== END ==
LOC: M LABSMTC 09:51
PROVIDERS: ATTEND Anesthesiology
DX: Z01.818 Encounter for other preprocedural examination (principal); Z20.828 Contact with and (suspected) exposure to other viral communicable diseases
CPT/HCPCS: C9803; U0003

== ENCOUNTER 2019-12-20 06:29 | Day surgery (SDC) | payer MEDICARE ==
[~2019-12-20] VITALS: Ht 170.2 cm; Wt 70.8 kg
[~2019-12-20 06:29] MED LIST changes: +NS 1,000 ML IV ONE; -PROT1TAB2 PO
[2019-12-20] MEDS ORDERED: fentaNYL 100 MCG/2 ML INJECTION (J3010) As Ordered ONE (07:04)
[2019-12-20] MEDS ORDERED: propofoL 500 MG/50 ML VIAL As Ordered ONE (07:04)
[2019-12-20] MEDS ORDERED: LIDOCAINE 2% 100MG/5ML SDV (FOR ANES.) As Ordered ONE (07:10)
[2019-12-20] MEDS ORDERED: ePHEDrine SULFATE 25 MG/5 ML(5MG/ML) SYRINGE As Ordered ONE (07:43)
--- NOTE | 2019-12-20 08:30 | ROOR ---
Patient Name: Melo Guillermo Procedure Date: 12/20/2019 7:31 AM Date of : 1955 Age: 64 Room: [facility] Gender: Male Note Status: Finalized Procedure: Upper GI endoscopy Indications: Epigastric abdominal pain, Metastatic malignancy to liver, Patient has a single metastatic deposit of adenocarcinoma in the liver. Providers: Haile Mari MD Referring MD: DERIAN HENSLEY DO Requesting Provider: Medicines: Monitored Anesthesia Care Complications: No immediate complications. Procedure: Pre-Anesthesia Assessment: - Prior to the procedure, a History and Physical was performed, and patient medications and allergies were reviewed. The patient is competent. The risks and benefits of the procedure and the sedation options and risks were discussed with the patient. All questions were answered and informed consent was obtained. Patient identification and proposed procedure were verified by the physician, the nurse and the anesthesiologist in the procedure room. Mental Status Examination: alert and oriented. Airway Examination: normal oropharyngeal airway and neck mobility. Prophylactic Antibiotics: The patient does not require prophylactic antibiotics. Prior Anticoagulants: The patient has taken no previous anticoagulant or antiplatelet agents. ASA Grade Assessment: II - A patient with mild systemic disease. After reviewing the risks and benefits, the patient was deemed in satisfactory condition to undergo the procedure. The anesthesia plan was to use monitored anesthesia care (MAC). Immediately prior to administration of medications, the patient was re-assessed for adequacy to receive sedatives. The heart rate, respiratory rate, oxygen saturations, blood pressure, adequacy of pulmonary ventilation, and response to care were monitored throughout the procedure. The physical status of the patient was re-assessed after the procedure. The Endoscope was introduced through the mouth, and advanced to the second part of duodenum. The upper GI endoscopy was accomplished without difficulty. The patient tolerated the procedure well. Findings: The examined esophagus was normal. A large, infiltrative and ulcerated, non-circumferential mass with no bleeding and no stigmata of recent bleeding was found on the lesser curvature of the stomach. This began just below the GE junction. Biopsies were taken with a cold forceps for histology. Estimated blood loss was minimal. The first portion of the duodenum and second portion of the duodenum were normal. Impression: - Normal esophagus. 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 Biopsied. - Normal first portion of the duodenum and second portion of the duodenum. Recommendation: - Discharge patient to home. - Resume previous diet. - Await pathology results. - Refer to an oncologist as previously scheduled. Haile Mari MD Haile Mari MD 12/20/2019 8:30:36 AM Electronically signed by Haile Mari MD Number of Addenda: 0 Note Initiated On: 12/20/2019 7:31 AM Estimated Blood Loss: Estimated blood loss was minimal.
--- NOTE | 2019-12-20 08:36 | ROOR ---
Patient Name: Melo Guillermo Procedure Date: 12/20/2019 7:31 AM Date of : 1955 Age: 64 Room: [facility] Gender: Male Note Status: Finalized Procedure: Colonoscopy Indications: Metastatic malignancy to liver, Patient has a single biopsy proven metastasis of adenocarcinoma in the liver. Providers: Haile Mari MD Referring MD: DERIAN HENSLEY DO Requesting Provider: Medicines: Monitored Anesthesia Care Complications: No immediate complications. Procedure: Pre-Anesthesia Assessment: - Prior to the procedure, a History and Physical was performed, and patient medications and allergies were reviewed. The patient is competent. The risks and benefits of the procedure and the sedation options and risks were discussed with the patient. All questions were answered and informed consent was obtained. Patient identification and proposed procedure were verified by the physician, the nurse and the anesthesiologist in the procedure room. Mental Status Examination: alert and oriented. Airway Examination: normal oropharyngeal airway and neck mobility. Prophylactic Antibiotics: The patient does not require prophylactic antibiotics. Prior Anticoagulants: The patient has taken no previous anticoagulant or antiplatelet agents. ASA Grade Assessment: II - A patient with mild systemic disease. After reviewing the risks and benefits, the patient was deemed in satisfactory condition to undergo the procedure. The anesthesia plan was to use monitored anesthesia care (MAC). Immediately prior to administration of medications, the patient was re-assessed for adequacy to receive sedatives. The heart rate, respiratory rate, oxygen saturations, blood pressure, adequacy of pulmonary ventilation, and response to care were monitored throughout the procedure. The physical status of the patient was re-assessed after the procedure. The Colonoscope was introduced through the anus and advanced to the cecum, identified by appendiceal orifice and ileocecal valve. The colonoscopy was performed without difficulty. The patient tolerated the procedure well. The quality of the bowel preparation was excellent. Findings: The perianal and digital rectal examinations were normal. A 4 mm polyp was found in the sigmoid colon. The polyp was sessile. The polyp was removed with a jumbo cold forceps. Resection and retrieval were complete. Estimated blood loss was minimal. The exam was otherwise without abnormality. Impression: - One 4 mm polyp in the sigmoid colon, removed with a jumbo cold forceps. Resected and retrieved. - The examination was otherwise normal. Recommendation: - Discharge patient to home. - Resume previous diet. - Continue present medications. - Await pathology results. Haile Mari MD Haile Mari MD 12/20/2019 8:36:11 AM Electronically signed by Haile Mari MD Number of Addenda: 0 Note Initiated On: 12/20/2019 7:31 AM Estimated Blood Loss: Estimated blood loss was minimal.
[2019-12-20 08:45] VITALS: BP 113/69
[2019-12-20] MEDS ORDERED: PROT1TAB2 PO (14:07)
== END 2019-12-20 08:58 | disposition home or self-care (01) ==
LOC: M OPP 06:29
PROVIDERS: ATTEND Surgery
DX: C18.5 Malignant neoplasm of splenic flexure (principal); R10.13 Epigastric pain; D12.6 Benign neoplasm of colon, unspecified; C78.7 Secondary malignant neoplasm of liver and intrahepatic bile duct
CPT/HCPCS: 43239; 45380; 88305; J3010

== ENCOUNTER → 2020-01-12 | Outpatient (CLI) | payer MEDICARE ==
[~2020-01-12] MED LIST changes: -NS 1,000 ML IV ONE; +PROT1TAB2 PO
== END ==
LOC: M LABSMTC 07:43
PROVIDERS: ATTEND Internal Medicine Hematology & Oncology
DX: Z20.828 Contact with and (suspected) exposure to other viral communicable diseases (principal)

== ENCOUNTER → 2020-01-15 | Outpatient (REF) | payer MEDICARE ==
[2020-01-15 11:48] LABS: PLATELET COUNT, AUTOMATED 273 10^3/uL (150-450)
[2020-01-15 12:02] LABS: INR 0.96
== END ==
LOC: M LABDRAWC 11:17
DX: Z01.818 Encounter for other preprocedural examination (principal)

== ENCOUNTER → 2020-03-17 | Outpatient (CLI) | payer MEDICARE ==
--- NOTE | 2020-03-17 16:29 | REP ---
INDICATION: EDEMA, UNSPECIFIED COMPARISON: None. TECHNIQUE: Real time compression and duplex Doppler interrogation of the bilateral lower extremity deep venous system is performed. FINDINGS: Bilaterally, the common femoral, superficial femoral and popliteal veins are fully compressible with transducer pressure and demonstrate normal spontaneous and phasic flow, without evidence of deep venous thrombosis. IMPRESSION: No evidence of deep venous thrombosis of the bilateral lower extremity femoral popliteal venous system. <Electronically signed by Melo Powers > 03/17/20 [id number]
== END ==
LOC: M RAD 15:39
PROVIDERS: ATTEND Physician Assistant
DX: R60.9 Edema, unspecified (principal)

== ENCOUNTER → 2020-04-18 | Outpatient (CLI) | payer MEDICARE ==
--- NOTE | 2020-04-21 10:31 | ECHO ---
DATE OF PROCEDURE: 04/18/2020 Age: 64 Gender: Male Height: 67 inches Weight: 150 pounds Body surface area 1.79 meters squared OUTPATIENT REFERRING PHYSICIAN: Kinjal Hernandez MD INDICATION: Potentially cardiotoxic chemotherapy. MEASUREMENTS: 2-D measurements: RV 4.0 cm LV 5.6 cm Septum 1.2 cm Posterior wall 1.2 cm Aortic root 3.5 cm LA 4.4 cm LVEF 65% DOPPLER MEASUREMENTS: AV 1.14 m/s LVOT 0.8 m/s MV E 66, A 33, EA ration 2.0 Early mitral deceleration time 187 milliseconds E prime medial 7.7 A prime medial 7.4 E prime lateral 11.2 PV 0.8 m/s Pulmonary artery acceleration time 135 milliseconds RVSP 30 mmHg IVC 1.5 cm COMMENTS: Sinus bradycardia without intraventricular conduction disturbance. M-mode and 2-dimensional echocardiography was performed with pulse, continuous wave, tissue Doppler and color flow imaging. Strain imaging was also performed. Slightly dilated and borderline hypertrophied left ventricle with normal wall motion. Mildly dilated left atrium with grade 2 LV diastolic dysfunction, but currently normal estimated mean left atrial pressure. Right heart chamber size is in the upper limits of normal with normal wall motion and Doppler evidence of pulmonary arterial pressure upper limits of normal to borderline increase. Normal IVC size and collapse against an elevated central venous pressure. Normal aortic dimensions. Mild aortic valvular sclerosis without stenosis and only trace insufficiency. Myomatous proliferation of the mitral valve with normal leaflet excursion, but mild posterior systolic buckling/prolapse with moderate insufficiency. Normal appearing tricuspid valve with mild insufficiency. No apparent intracardiac mass or pericardial effusion. The average global longitudinal strain measured 17%, which is considered borderline. MTDD
== END ==
LOC: M CARPUL 11:36
PROVIDERS: ATTEND Physician Assistant
DX: C16.9 Malignant neoplasm of stomach, unspecified (principal)

== ENCOUNTER → 2020-04-18 | Outpatient (CLI) | payer MEDICARE ==
[~2020-04-18] MED LIST changes: +GASTROGRAFIN SOLUTION 30ML (Q9963) As Ordered ONE; +ISOVUE-370 76% 100ML VIAL As Ordered ONE
--- NOTE | 2020-04-21 15:33 | REP ---
INDICATION: GASTRIC CA STAGE 4/ PT HAS CARPUL/ECHO FIRST COMPARISON: Outside examination dated 01/17/2020 TECHNIQUE: Axial contrast enhanced images from the thoracic inlet to the upper abdomen with coronal and sagittal reformations using 75 ml Isovue 370 intravenous contrast material. This CT examination was performed using the following dose reduction techniques: Automated exposure control, adjustment of mA and/or kv according to the patient's size, and use of iterative reconstruction technique. FINDINGS: The bilateral lung curry are relatively well aerated and essentially clear. No consolidation, obvious suspicious nodule or mass lesion is appreciated. Small perifissural densities are identified along the major fissures (right greater than left) which are likely chronic. No pleural effusion. No pneumothorax. Tracheobronchial tree is patent. No significant adenopathy. Further evaluation of the mediastinum demonstrates normal thoracic aorta without aneurysm or dissection. Heart and pericardium are relatively normal. [id number] identified with tip in the SVC. Musculoskeletal structures intact and without acute osseous abnormality. IMPRESSION: 1. Small perifissural densities are nonspecific and chronic likely representing small scarring. 2. No acute mediastinal or pleuroparenchymal process appreciated. 3. No evidence for metastatic disease within the thorax. <Electronically signed by Cem Rizo > 04/21/20 [id number]
--- NOTE | 2020-04-21 15:48 | REP ---
INDICATION: GASTRIC CA STAGE 4/ PT HAS CARPUL/ECHO FIRST. COMPARISON: Outside examination dated 01/17/2020 TECHNIQUE: Axial contrast-enhanced images from the lung bases to the pubic symphysis using oral and 100 cc Isovue 370 intravenous contrast material. Precontrast and delayed images of the abdomen obtained along with metallic artifact reduction series through the pelvis. Coronal and sagittal reformations obtained.. This CT examination was performed using the following dose reduction techniques: Automated exposure control, adjustment of mA and/or kv according to the patient's size, and the use of iterative reconstruction technique. FINDINGS: The liver includes 1.5 cm cyst along the medial left lobe adjacent to the falciform ligament at the site of prior 4.5 cm hepatic metastatic focus and stable cavernous hemangioma in the posterior segment right lobe. No new hepatic metastatic lesions are identified on current examination. Spleen, pancreas, gallbladder, bilateral adrenal glands and kidneys appear stable and relatively normal. Circumferential mucosal thickening at the gastroesophageal junction is suggested along with circumferential thickening through the distal stomach/pylorus. There appears to be poorly definable soft tissue in the gastrohepatic ligament and simi hepatis which is suspicious for residual adenopathy. However, the previous examination dated much more significant diffuse adenopathy at the gastrohepatic ligament, simi hepatis and retroperitoneum in a circumaortic and pericaval distribution which is significantly decreased from prior examination. Residual para-aortic lymph nodes now measure roughly up to approximately 11 mm and previously measured greater than 3 cm. Small and large bowel is grossly unremarkable. No bowel obstruction or perforation. No evidence for inflammatory process identified. Colonic and sigmoid diverticulosis noted without evidence for diverticulitis. Pelvis is somewhat limited in evaluation due to metallic streak artifact despite metallic artifact reduction technique. Bladder is grossly unremarkable. Prostatomegaly is noted. No ascites. The abdominal aorta is without aneurysm or dissection. 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 The inferior vena cava and common iliac veins appear dilated but without obvious associated pathology. No ascites. No free air. Musculoskeletal structures demonstrate degenerative changes and stable 1.6 cm sclerotic focus in the right iliac bone adjacent to the sacroiliac joint may represent chronic bone island. IMPRESSION: 1. Circumferential thickening at the gastroesophageal junction and pylorus are nonspecific findings and should be correlated clinically given the patient's history of gastric carcinoma. 2. Liver includes a cyst at the site of prior metastatic mass and stable cavernous hemangioma. No new hepatic lesions are identified on current exam. 3. Significant previously noted adenopathy throughout the gastrohepatic ligament, simi hepatis and retroperitoneum has markedly improved. Somewhat ill-defined areas of soft tissue are identified in the region of the simi hepatis and gastrohepatic ligament which are nonspecific and may represent residual lymph nodes or chronic change. 4. 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 Associated dilatation to the bilateral iliac veins and IVC are nonspecific findings. 5. Prostatomegaly. 6. Overall appearance of current examination is obviously improved as compared to prior examination. However continued active malignancy and metastatic disease cannot be excluded. <Electronically signed by Cem Rizo > 04/21/20 [id number]
== END ==
LOC: M RAD 11:28
PROVIDERS: ATTEND Internal Medicine Hematology & Oncology
DX: C16.9 Malignant neoplasm of stomach, unspecified (principal)
CPT/HCPCS: 71260; 74178; 93306; Q9963; Q9967

== ENCOUNTER 2020-07-14 12:12 | Emergency (ER) | payer MEDICARE ==
[~2020-07-14] VITALS: Ht 170.2 cm; Wt 64.6 kg
[~2020-07-14 12:12] MED LIST changes: -GASTROGRAFIN SOLUTION 30ML (Q9963) As Ordered ONE; -ISOVUE-370 76% 100ML VIAL As Ordered ONE
[2020-07-14] MEDS ORDERED: ONDANSETRON 4MG/2ML VIAL IV ONE ×2 (12:45→21:00)
[2020-07-14] MEDS ORDERED: NS 1,000 ML IV ONE ×2 (12:45→14:50)
--- NOTE | 2020-07-14 13:50 | REP ---
INDICATION: upper abd pain, jaundice COMPARISON: CT dated 04/18/2020, 01/17/2020 TECHNIQUE: Real time walker scale ultrasound examination using curved array transducer. FINDINGS: The liver demonstrates echogenic mass in the right lobe previously documented as hemangioma along with heterogeneous mass in the left lobe previously documented as metastatic lesion. Intrahepatic biliary ductal dilatation is appreciated similar to prior CT examination. Further smaller poorly defined lesions cannot be excluded. Gallbladder demonstrates significant wall thickening and small amount of pericholecystic fluid along with internal tumefactive sludge. The common bile duct is dilated to 8.2 mm diameter. The pancreatic duct is dilated to 6.2 mm diameter. The right kidney is normal reniform shape measuring 10.2 x 5.3 x 4.0 cm without hydronephrosis. Small amount of perihepatic fluid cannot be excluded. Minimal ascites in the right upper quadrant noted. IMPRESSION: 1. Benign hemangioma in the right hepatic lobe unchanged. 2. Biliary ductal dilatation, pancreatic duct dilatation is similar to prior CT findings and consistent with changes related to known metastatic gastric carcinoma. <Electronically signed by Cem Rizo > 07/14/20 [id number]
[2020-07-14 13:52] LABS: BASO % 0.2 % (0.0-1.0); EOS % 0.2 % (0.0-3.0); HEMATOCRIT 34.9 % (42.0-52.0); LYMPH # 0.3 10^3/uL (1.5-5.0); LYMPH % 4.4 % (24.0-44.0); MEAN CORPUSCULAR HGB CONC 34.4 g/dl (32.0-36.5); MEAN CORPUSCULAR VOLUME 95.9 fl (80.0-96.0); MONO # 0.6 10^3/uL (0.0-0.8); MONO % 9.3 % (2.0-8.0); NEUTROPHILS # 5.1 10^3/uL (1.5-8.5); NEUTROPHILS % 85.6 % (36.0-66.0); PLATELET COUNT, AUTOMATED 264 10^3/uL (150-450); RED BLOOD COUNT 3.64 10^6/uL (4.30-6.10); WHITE BLOOD COUNT 5.9 10^3/uL (4.0-10.0)
[2020-07-14 14:41] LABS: ALBUMIN 3.3 GM/DL (3.2-5.2); ALT/SGPT 115 U/L (12-78); AMYLASE 1118 U/L (25-115); BILIRUBIN,DIRECT 9.1 MG/DL (0.0-0.2); BILIRUBIN,TOTAL 11.3 MG/DL (0.2-1.0); BLOOD UREA NITROGEN 9 MG/DL (7-18); CARBON DIOXIDE LEVEL 27 MEQ/L (21-32); CHLORIDE LEVEL 97 MEQ/L (98-107); CREATININE FOR GFR 0.71 MG/DL (0.70-1.30); GLOMERULAR FILTRATION RATE > 60.0 (>49); GLUCOSE, FASTING 115 MG/DL (70-100); LIPASE 6740 U/L (73-393); POTASSIUM SERUM 3.6 MEQ/L (3.5-5.1); SODIUM LEVEL 133 MEQ/L (136-145); TOTAL PROTEIN 5.9 GM/DL (6.4-8.2)
[2020-07-14] MEDS ORDERED: ISOVUE-370 76% 100ML VIAL As Ordered ONE (14:57)
--- NOTE | 2020-07-14 15:37 | REP ---
INDICATION: pancreatitis, jaundice. COMPARISON: 04/18/2020 TECHNIQUE: Axial contrast-enhanced images from the lung bases to the pubic symphysis using 100 cc Isovue 370 intravenous contrast material. Delayed images of the abdomen along with coronal and sagittal reformations obtained. This CT examination was performed using the following dose reduction techniques: Automated exposure control, adjustment of mA and/or kv according to the patient's size, and the use of iterative reconstruction technique. FINDINGS: There is marked, diffuse intrahepatic and extrahepatic biliary ductal dilatation along with significant pancreatic ductal dilatation. Marked gallbladder wall thickening is appreciated and the lumen is filled with high density fluid extending into the cystic duct. The above-mentioned ductal dilatation is consistent with an obstructing cause such as malignancy which is not definitively identified or obstructing calculus. The high density material within the gallbladder may represent contrast from prior study or related to hemorrhagic cholecystitis. Liver again demonstrates hemangioma in the right lobe and no further significant obvious hepatic lesions. Spleen is unremarkable. Bilateral adrenal glands and kidneys are normal. The pancreas is without obvious mass although subtle small occluding mass lesion at the head/uncinate process given the above-mentioned findings cannot definitively be excluded. The enteric system is without obstruction or acute inflammatory process. Evaluation of the pelvis is significantly limited due to metallic artifact from bilateral hip prostheses although small amount of ascites is suggested. The bladder and prostate gland are incompletely evaluated. No free air. No significant ascites. Abdominal aorta demonstrates ectatic/aneurysmal changes to the iliac arteries (left greater than right) unchanged. Skeletal structures are stable. Lung bases demonstrate right lower lobe atelectasis and suspicious 18 mm new nodule suggesting metastatic disease. IMPRESSION: 1. Significant intrahepatic and extrahepatic biliary ductal dilatation along with pancreatic duct dilatation. Findings suggest an obstructing cause in the region of the head of the pancreas but without obvious identification. 2. Gallbladder wall thickening and high density material within the gallbladder lumen. Differential diagnosis includes contrast from prior study versus acute hemorrhagic cholecystitis. 3. New metastatic nodule suspected in the right lower lung zone. <Electronically signed by Cem Rizo > 07/14/20 [id number]
[2020-07-14 16:44] LABS: APPEARANCE, URINE CLEAR (CLEAR); BACTERIA, URINE AUTO 1+ (NEGATIVE); BILIRUBIN, URINE AUTO 2+ (NEGATIVE); BLOOD, URINE BLOOD 1+ (NEGATIVE); COLOR, URINE AMBER (YELLOW); GLUCOSE, URINE (UA) AUTO NEGATIVE (NEGATIVE); KETONE, URINE AUTO TRACE mg/dL (NEGATIVE); LEUKOCYTE ESTERASE, URINE AUTO NEGATIVE (NEGATIVE); MUCUS, URINE SMALL (NEGATIVE); NITRITE, URINE AUTO NEGATIVE (NEGATIVE); PROTEIN, URINE AUTO NEGATIVE (NEGATIVE); RBC, URINE AUTO 3 /HPF (0-3); SPECIFIC GRAVITY URINE AUTO 1.048 (1.002-1.035); SQUAMOUS EPITHELIAL CELL UR AU 0 /HPF (0-6); WBC, URINE AUTO 3 /HPF (0-3)
[2020-07-14] MEDS ORDERED: OLAN10TA2 (17:21)
[2020-07-14] MEDS ORDERED: OXYC-517 (17:21)
[2020-07-14] MEDS ORDERED: ONDA8TAB10 (17:21)
[2020-07-14] MEDS ORDERED: PROC10TA4 (17:21)
[2020-07-14] MEDS ORDERED: CAPE1TAB2 (17:21)
[2020-07-14] MEDS ORDERED: MORPHINE 2 MG/ML 1ML VIAL (J2270) IV PRN (21:00)
[2020-07-14] MEDS ORDERED: NS 1,000 ML IV SCH (21:00)
[2020-07-14 22:30] VITALS: BP 156/87
== END 2020-07-14 22:41 | disposition short-term general hospital (02) ==
LOC: M ED 12:12
DX: K83.1 Obstruction of bile duct (principal); D18.03 Hemangioma of intra-abdominal structures; C16.9 Malignant neoplasm of stomach, unspecified; C79.9 Secondary malignant neoplasm of unspecified site; R91.8 Other nonspecific abnormal finding of lung field
CPT/HCPCS: 74177; 76705; 80048; 80076; 81001; 82150; 83690; 85025; 96361; 96374; 96375; 96376; 99284; J2270; J2405; Q9967

== ENCOUNTER 2020-08-25 09:12 | Inpatient (IN) | payer MEDICARE ==
[~2020-08-25] VITALS: Ht 170.2 cm; Wt 59.5 kg
[~2020-08-25 09:12] MED LIST changes: +CAPE1TAB2; +HYDR2TAB2 PO; +MORP30TASA PO; +OLAN1TAB20 PO; +ONDA-83 PO; +ONDA8TAB10; +OXYC-517; +PANT40TA29 PO; +PROC10TA4 PO; +SENN-80 PO
--- NOTE | 2020-08-25 09:50 | REP ---
INDICATION: DYSPNEA/COUGH COMPARISON: 02/15/2019 TECHNIQUE: PA and lateral. FINDINGS: [id number] with tip in the SVC. Cardiac silhouette is normal. The lung curry demonstrate diffuse chronic interstitial changes and superimposed multifocal infiltrates (right greater than left). Small right effusion cannot be excluded. No pneumothorax. Skeletal structures are intact. IMPRESSION: Chronic changes with bilateral multifocal infiltrates and possible small right effusion. <Electronically signed by Cem Rizo > 08/25/20 [id number]
[2020-08-25] MEDS ORDERED: ONDANSETRON 4MG/2ML VIAL IV ONE (10:30)
[2020-08-25 10:37] LABS: BASO % 0.1 % (0.0-1.0); HEMATOCRIT 30.1 % (42.0-52.0); HEMOGLOBIN 10.7 g/dl (13.5-17.5); LYMPH # 0.3 10^3/uL (1.5-5.0); LYMPH % 3.1 % (24.0-44.0); MEAN CORPUSCULAR HGB CONC 35.5 g/dl (32.0-36.5); MEAN CORPUSCULAR VOLUME 87.2 fl (80.0-96.0); MONO # 0.7 10^3/uL (0.0-0.8); MONO % 7.3 % (2.0-8.0); NEUTROPHILS % 88.9 % (36.0-66.0); PLATELET COUNT, AUTOMATED 312 10^3/uL (150-450); RED BLOOD COUNT 3.45 10^6/uL (4.30-6.10); WHITE BLOOD COUNT 10.1 10^3/uL (4.0-10.0)
[2020-08-25 11:09] LABS: FREE T4 1.46 NG/DL (0.76-1.46)
[2020-08-25 11:21] LABS: ALBUMIN 1.8 GM/DL (3.2-5.2); ALT/SGPT 211 U/L (12-78); BILIRUBIN,DIRECT 6.6 MG/DL (0.0-0.2); BILIRUBIN,TOTAL 7.9 MG/DL (0.2-1.0); BLOOD UREA NITROGEN 9 MG/DL (7-18); CALCIUM LEVEL 7.8 MG/DL (8.8-10.2); CARBON DIOXIDE LEVEL 24 MEQ/L (21-32); CHLORIDE LEVEL 86 MEQ/L (98-107); CK-MB VALUE MASS < 1.0 NG/ML (<3.6); CPK CREATINE PHOSPHOKINASE 73 U/L (39-308); CREATININE FOR GFR 0.51 MG/DL (0.70-1.30); GLOMERULAR FILTRATION RATE > 60.0 (>49); GLUCOSE, FASTING 126 MG/DL (70-100); MB/CK RELATIVE INDEX 1.37 (< OR =4); NT-PRO BNP 168 PG/ML (<125); POTASSIUM SERUM 4.3 MEQ/L (3.5-5.1); SODIUM LEVEL 121 MEQ/L (136-145); TROPONIN I < 0.02 NG/ML (< 0.10)
[2020-08-25] MEDS ORDERED: ISOVUE-370 76% 100ML VIAL As Ordered ONE (11:34)
--- NOTE | 2020-08-25 11:36 | REP ---
INDICATION: edema r/o DVT. COMPARISON: None. TECHNIQUE: Bilateral lower extremity duplex venous scanning is performed from the groin to the ankle level. FINDINGS: The deep veins are anechoic and fully compressible from the groin to the popliteal fossa in the left and right lower extremity. Color flow imaging is homogeneous. Spectral Doppler interrogation demonstrates intact respiratory variation in flow and normal manual augmentation of flow. There is no evidence of deep vein thrombosis in the femoropopliteal veins. There is no evidence of deep vein thrombosis in the visualized calf veins. IMPRESSION: No evidence of DVT in the femoropopliteal veins. No DVT in the visible portions of the calf veins. <Electronically signed by Navdeep Snow > 08/25/20 [id number]
--- NOTE | 2020-08-25 12:33 | REP ---
INDICATION: SOB. History of gastric carcinoma. COMPARISON: Comparison chest CT study April 18, 2020.. Comparison is made with today's chest x-ray as well as a radiograph from February 15, 2019. TECHNIQUE: Contrast dose: 100 ML of Isovue [address] technique: Helical scanning is acquired and overlapping 1.5 mm and contiguous 3 mm axial images are reformatted. In addition, maximum intensity projection and multiplanar re-formation images are generated in sagittal and coronal imaging projections. FINDINGS: There is good opacification in the pulmonary arterial tree. There is no evidence of vessel cut off or filling defect to suggest pulmonary embolus. Homogeneous opacity is seen in the thoracic aorta. There is no evidence of aneurysm or dissection. There are small bilateral pleural effusions new from the prior study and right a little larger than left. There is multifocal bilateral nearly diffuse pattern of interstitial lung disease with multiple irregular nodular opacities in the lung curry bilaterally as well. These are new findings also from the comparison CT study of April 18, 2020. There is no evidence of pericardial effusion.1 there is adenopathy in the right hilus, subcarinal and precarinal region and some small lymph nodes have developed in the aortic or pulmonary window region of the mediastinum consistent with mediastinal adenopathy. Left hilar fullness is present as well today. In the upper abdomen, there is a common bile duct stent in place. An infiltrative process1 is seen in the left lobe of the liver and there is heterogeneous low-density in the right lobe similar to the prior study. The left lobe disease is new compared with the April 18, 2020 exam. There is ascites visible in the upper abdomen also a new finding. Fullness is seen in the left adrenal gland. No bony destructive lesion. IMPRESSION: No CT evidence of pulmonary embolus. Extensive pleuroparenchymal changes consistent with neoplastic and or inflammatory change. There is an infiltrative masslike lesion in the left lobe of the liver. Common bile duct stent. Upper abdominal ascites. Hilar and mediastinal adenopathy suggestive of a metastatic disease. <Electronically signed by Navdeep Snow > 08/25/20 [id number]
--- NOTE | 2020-08-25 12:40 | REP ---
INDICATION: SOB. History gastric carcinoma. COMPARISON: Comparison CT study abdomen pelvis July 14, 2020.. TECHNIQUE: Helical scanning was acquired and 4 mm axial images are re-formatted. Coronal and sagittal MPR images were generated and reviewed. The contrast enhancement dose is 100 mL of intravenous Isovue 370. FINDINGS: Preliminary eye glass frame polisher radiograph demonstrates a biliary wall stent in place. On axial contrast enhanced CT study images there is evidence of an infiltrative process in the left lobe of the liver and portal region surrounding the biliary stent. Intrahepatic bile duct dilation persists. There is a moderate distension of the pancreatic duct. The main pancreatic duct measures 13 mm in greatest diameter. There is retroperitoneal and I suspect celiac axis adenopathy in the upper abdomen. There is some fullness of the left adrenal gland. There is mild ascites. The ascites is new and the adenopathy is more prominent., the biliary stent is a new finding as well. 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 The right common iliac artery is ectatic as well. Moderate ascites is visible in the pelvis. small and large bowel loops are remarkable only for moderate stool in the right colon. The kidneys enhance symmetrically and are morphologically intact. Bilateral hip arthroplasties are again noted in place. No bony destructive lesion is seen. IMPRESSION: Infiltrative process enlarging left lobe of the liver. Common bile duct stent in place. Persistent hepatic and bile duct dilation. Persistent dilation of the pancreatic duct. Upper abdominal lymphadenopathy and ascites suggest progressive neoplastic involvement. <Electronically signed by Navdeep Snow > 08/25/20 [id number]
[2020-08-25] MEDS ORDERED: guaiFENesin SYRUP 200 MG/10 ML UDC PO ONE (13:10)
[2020-08-25] MEDS ORDERED: METO5EL PO (15:58)
[2020-08-25] MEDS ORDERED: LACT10SO3 PO (15:58)
[2020-08-25] MEDS ORDERED: HYDROmorphone 2 MG TAB PO ONE (16:50)
[2020-08-25] MEDS ORDERED: FLEET ENEMA PR PRN (18:00)
[2020-08-25] MEDS ORDERED: SCOPOLAMINE 1MG TRANSDERMAL PATCH TOP PRN (18:00)
[2020-08-25] MEDS ORDERED: ONDANSETRON 4MG/2ML VIAL IV PRN (18:00)
[2020-08-25] MEDS ORDERED: HYOSCYAMINE SULFATE 0.125 MG SUBL TABLET PO PRN (18:00)
[2020-08-25] MEDS ORDERED: LACTULOSE 20 GM/30 ML SYRUP UD PO PRN (18:00)
[2020-08-25] MEDS ORDERED: LORazepam 1 MG TAB PO PRN (18:00)
[2020-08-25] MEDS ORDERED: ATROPINE SULFATE 1% OP SOLN 2 ML BTL SL PRN (18:00)
[2020-08-25] MEDS ORDERED: SENNA 8.6 MG TAB (SENOKOT) PO PRN (18:00)
[2020-08-25] MEDS ORDERED: LORazepam 2 MG/ML VIAL IV PRN (18:00)
[2020-08-25] MEDS ORDERED: MORPHINE 2 MG/ML 1ML VIAL (J2270) IV PRN (18:00)
[2020-08-25] MEDS ORDERED: ONDANSETRON 4 MG ORAL DISINTEGRATING TAB PO PRN (18:00)
[2020-08-25] MEDS ORDERED: ACETAMINOPHEN TAB 650MG DOSE (2X325MG) PO PRN (18:00)
[2020-08-25] MEDS ORDERED: BISACODYL 10 MG SUPP PR PRN (18:00)
--- NOTE | 2020-08-25 18:08 | HPEPDOC ---
[facility] Medical History & Physical Date of Admission Aug 25, 2020 Date of Service: Aug 25, 2020 History and Physical CHIEF COMPLAINT: Abdominal pain, shortness of breath HISTORY OF PRESENT ILLNESS: 64-year-old male with past medical history of gastric cancer metastatic to liver and lungs, followed by oncology, Dr. Mayorga in [facility] as well as [place] here at [facility]. Patient has been getting several rounds of chemotherapy for the last several weeks. He presented here with worsening shortness of breath. Cachexia debility and poor by mouth intake. ER staff, discussed with his oncologist at [place]. Dr. Mayorga prognosis is very poor. Patient is a very strong candidate for hospice care. Discussed this with the patient. He wishes tablet for LOCAL AREA NETWORK SYSTEMS ADMINSTRATOR care. He would prefer to go home as home hospice. Most form was signed and witnessed. I discussed the findings with the patient's brother is well. [facility], symptomatically controlled as well as hospice consult. PAST MEDICAL HISTORY: Metastatic gastric cancer PAST SURGICAL HISTORY: Biliary stent placement SOCIAL HISTORY: Patient denies smoking Patient denies etoh use Patient denies illicit drug use ALLERGIES: Please see below. REVIEW OF SYSTEMS: 10 point ROS conducted relevant findings noted in the HPI. HOME MEDICATIONS: Please see below. PHYSICAL EXAMINATION: VITAL SIGNS: please see below General: NAD, comfortable HEENT: PERRLA, EOMI, sclerae clear Neck: supple, normal ROM, no JVD Respiratory: lungs CTAB, no wheeze, no rales, no crackles CVS: RRR, normal S1, S2, no murmurs Abdo: soft, no masses, no hepatosplenomegaly, BS+, no rebound tenderness Extremities: no edema, pulses 2+ MSK: no joint deformities, normal ROM Neuro: no focal neuro deficits, moving all 4 extremities, CN2-12 intact. Strength 5/5 in all 4 extremities. No nystagmus. Psych: calm, cooperative, AAO x 3 LABORATORY DATA: See below. IMAGING: CT angio chest (08/25/20): IMPRESSION: No CT evidence of pulmonary embolus. Extensive pleuroparenchymal changes consistent with neoplastic and or inflammatory change. There is an infiltrative masslike lesion in the left lobe of the liver. Common bile duct stent. Upper abdominal ascites. Hilar and mediastinal adenopathy suggestive of a metastatic disease. CT abdo pelvis w IV contrast (08/25/20): IMPRESSION: Infiltrative process enlarging left lobe of the liver. Common bile duct stent in place. Persistent hepatic and bile duct dilation. Persistent dilation of the pancreatic duct. Upper abdominal lymphadenopathy and ascites suggest progressive neoplastic involvement. Bilateral LE duplex (08/25/20): No evidence of DVT in the femoropopliteal veins. No DVT in the visible portions of the calf veins. CXR (08/25/20): No evidence of DVT in the femoropopliteal veins. No DVT in the visible portions of the calf veins. MICROBIOLOGY: Please see below. ASSESSMENT: 64-year-old male with past medical history of gastric cancer metastatic to liver and lungs, followed by oncology, Dr. Mayorga in [facility] as well as [place] here at [facility]. Patient has been getting several rounds of chemotherapy for the last several weeks. He presented here with worsening shortness of breath, cachexia debility and poor by mouth intake. ER staff discussed with his oncologist at [place]. Dr. Mayorga prognosis is very poor. Patient is a very strong candidate for hospice care. Discussed this with the patient. He wishes tablet for LOCAL AREA NETWORK SYSTEMS ADMINSTRATOR care. He would prefer to go home as home hospice. Most form was signed and witnessed. I discussed the findings with the patient's brother is well. Patient will be admitted to MedSurg floor, symptomatically controlled as well as hospice consult. - LOCAL AREA NETWORK SYSTEMS ADMINSTRATOR orders are placed. Both by mouth and IV every 6 ordered. Patient will be continued on his home dose of OxyContin 30 as well as Roxanol. We'll start dextromethorphan with codeine for cough suppression. Hospice consult was placed. PFS consult also place. Dispo: admission expect to last > 2 midnights Vital Signs Vital Signs Date Time Temp Pulse Resp B/P (MAP) Pulse Ox O2 Delivery O2 Flow Rate FiO2 08/25/20 17:45 97 18 134/82 (99) 95 Room Air 08/25/20 16:00 98.0 Laboratory Data Labs 24H Laboratory Tests 2 08/25/20 10:19: Immature Granulocyte % (Auto) 0.6, Neutrophils (%) (Auto) 88.9H, Lymphocytes (%) (Auto) 3.1L, Monocytes (%) (Auto) 7.3, Eosinophils (%) (Auto) 0.0, Basophils (%) (Auto) 0.1, Neutrophils # (Auto) 9.0H, Lymphocytes # (Auto) 0.3L, Monocytes # (Auto) 0.7, Eosinophils # (Auto) 0.0, Basophils # (Auto) 0.0, Nucleated Red Blood Cells % (auto) 0.0 08/25/20 10:24: Anion Gap 11, Glomerular Filtration Rate > 60.0, Calcium Level 7.8L, Total Bilirubin 7.9H, Direct Bilirubin 6.6H, Aspartate Amino Transf (AST/SGOT) 351H, Alanine Aminotransferase (ALT/SGPT) 211H, Alkaline Phosphatase 1067H, Total Creatine Kinase 73, Creatine Kinase MB < 1.0, Creatine Kinase MB Relative Index 1.37, Troponin I < 0.02, DC-Bqg-O-Type Natriuretic Peptide 168H, Total Protein 5.0L, Albumin 1.8L, Albumin/Globulin Ratio 0.6, Lipase 54L, Thyroid Stimulating Hormone (TSH) 2.360, Free Thyroxine 1.46 CBC/BMP Laboratory Tests 08/25/20 10:19 08/25/20 10:24 Microbiology Microbiology 08/25/20 Respiratory Virus Panel (PCR) ([facility]) - Final, Complete Home Medications Scheduled Metoclopramide HCl (Metoclopramide HCl) 5 Mg/5 Ml Solution, 5 ML PO AC Morphine Sulfate (Morphine Sulfate ER) 30 Mg Tablet.er, 30 MG PO BID Olanzapine (Olanzapine) 10 Mg Tablet, 10 MG PO QHS Pantoprazole Sodium (Pantoprazole Sodium) 40 Mg Tablet.dr, 40 MG PO QAM Sennosides (Senna) 8.6 Mg Tablet, 17.2 MG PO BID Scheduled PRN Hydromorphone HCl (Hydromorphone HCl) 2 Mg Tablet, 2 MG PO Q4H PRN for PAIN LEVEL 5-10 Lactulose (Lactulose) 10 Gm/15 Ml Solution, 15 ML PO DAILY PRN for CONSTIPATION TAKE MIDDAY IF NO BOWEL MOVMENT DAY BEFORE Ondansetron HCl (Ondansetron HCl) 4 Mg Tablet, 4 MG PO Q6H PRN for NAUSEA OR VOMITING Prochlorperazine Maleate (Prochlorperazine Maleate) 10 Mg Tablet, 10 MG PO Q6H PRN for NAUSEA OR VOMITING Allergies Coded Allergies: No Known Allergies (Unverified , 12/14/19) LEONELA BANDA MD Aug 25, 2020 18:08
[2020-08-25] MEDS: MORPHINE 30 MG SA TAB PO SCH (20:20)
[2020-08-25] MEDS: OLANZapine 10 MG TAB PO SCH (20:20)
--- NOTE | 2020-08-25 21:30 | ECGEPIP ---
[facility] - ED Test Date: 2020-08-25 Pat Name: STACY ALMONTE Department: Room: - Gender: Male Medical Clinic Manager: : [id number] Requested By: VIVIENNE Webster Order Number: [id number] Reading MD: Reba Juarez Measurements Intervals [place] Rate: 96 P: 57 GA: 170 QRS: -4 QRSD: 82 T: 78 QT: 344 QTc: 434 Interpretive Statements Normal sinus rhythm Low voltage QRS Nonspecific T wave abnormality increased rate 02/15/19 Electronically Signed on 08-25-2020 21:30:00 EDT by Reba Juarez
[2020-08-26] MEDS: MORPHINE 10MG/0.5ML ORAL CONCENTRATE SOLUTION U/D SL PRN ×3 (00:31→19:09)
[2020-08-26] MEDS: PANTOPRAZOLE 40MG TAB (PROTONIX) PO SCH (09:00)
[2020-08-26] MEDS: MORPHINE 30 MG SA TAB PO SCH ×2 (09:17→21:11)
[2020-08-26] MEDS ORDERED: PROCHLORPERAZINE 5 MG TAB (S0183) PO PRN (12:00)
[2020-08-26] MEDS ORDERED: ALBUTEROL SULFATE 2.5 MG/0.5 ML INH NEB SOLN NEB PRN (12:00)
[2020-08-26] MEDS ORDERED: FUROSEMIDE 20MG/2ML VIAL (J1940) IV ONE (13:00)
[2020-08-26] MEDS: OLANZapine 10 MG TAB PO SCH (21:11)
[2020-08-27 03:12] VITALS: BP 140/83
[2020-08-27] MEDS ORDERED: ATIV1TAB10 PO (07:48)
[2020-08-27] MEDS ORDERED: MORP20SO3 PO (07:48)
[2020-08-27] MEDS ORDERED: HYOS125TA PO (07:48)
[2020-08-27] MEDS: PANTOPRAZOLE 40MG TAB (PROTONIX) PO SCH (09:00)
[2020-08-27] MEDS: MORPHINE 30 MG SA TAB PO SCH (09:00)
--- NOTE | 2020-08-27 10:25 | DS.PDOC ---
Discharge Summary General Date of Admission Aug 25, 2020 at 17:58 Date of Discharge 08/27/20 Discharge Summary PROCEDURES PERFORMED DURING STAY: [None]. DISCHARGE DIAGNOSES: Metastatic gastric cancer. Acute liver failure with obstructive jaundice due to hepatic metastasis Hyponatremia Severe protein calorie malnutrition COMPLICATIONS/CHIEF COMPLAINT: Malignant Neoplasm Of Stomach Metastatic To Liver-. HOSPITAL COURSE: 64-year-old male with past medical history of gastric cancer metastatic to liver and lungs, followed by oncology, Dr. Mayorga in [facility] as well as here at [facility]. Patient has been getting several rounds of chemotherapy for the last several weeks. He presented here with worsening shortness of breath, cachexia debility and poor by mouth intake. ER staff discussed with his oncologist at [place]. Dr. Mayorga prognosis is very poor. Patient is a very strong candidate for hospice care. Discussed this with the patient. He wishes tablet for CONTROL SYSTEMS DEVELOPER care. He would prefer to go home as home hospice. MOLST form was signed and witnessed. CONTROL SYSTEMS DEVELOPER: will continue on MS contin. will add sublingual morphine for pain and air hunger, atropine and hyoscyamine for terminal secretions. Ativan for anxiety. Metastatic gastric cancer with mets to lungs and liver. with obstructive jaundice and acute liver failure from hepatic mets. Pain controlled with current regimen. Severe protein calorie malnutrition Albumin of 1.9, bitemporal wasting, wasting of small muscles of hands. BMI 20.6 DISCHARGE MEDICATIONS: Please see below. ALLERGIES: Please see below. PHYSICAL EXAMINATION ON DISCHARGE: VITAL SIGNS: Please see below. GENERAL: awake , alert, oriented HEENT: NC/AT, bitemporal wasting, jaundice present. NECK: supple CARDIOVASCULAR EXAMINATION: s1, s2 regular, RESPIRATORY EXAMINATION: bilateral diffuse crackles, normal air movement ABDOMINAL EXAMINATION: soft, tender in the epigastrium, RUQ and periumbilical region, bowel sounds present EXTREMITIES: bipedal pitting edema SKIN: Jaundice. LABORATORY DATA: Please see below. PROGNOSIS: Dismal ACTIVITY: [As tolerated]. DIET: As tolerated DISCHARGE PLAN: Home with hospice DISCHARGE CONDITION: [Stable]. TIME SPENT ON DISCHARGE: 31 minutes. Vital Signs/I&Os Vital Signs Date Time Temp Pulse Resp B/P (MAP) Pulse Ox O2 Delivery O2 Flow Rate FiO2 08/27/20 03:12 123 20 140/83 (102) 98 Room Air 08/26/20 19:09 97.8 Microbiology Microbiology 08/25/20 Respiratory Virus Panel (PCR) ([facility]) - Final, Complete Discharge Medications Scheduled Metoclopramide HCl (Metoclopramide HCl) 5 Mg/5 Ml Solution, 5 ML PO AC, (Reported) Morphine Sulfate (Morphine Sulfate ER) 30 Mg Tablet.er, 30 MG PO BID, (Reported) Olanzapine (Olanzapine) 10 Mg Tablet, 10 MG PO QHS, (Reported) Pantoprazole Sodium (Pantoprazole Sodium) 40 Mg Tablet.dr, 40 MG PO QAM, (Reported) Sennosides (Senna) 8.6 Mg Tablet, 17.2 MG PO BID, (Reported) Scheduled PRN Hydromorphone HCl (Hydromorphone HCl) 2 Mg Tablet, 2 MG PO Q4H PRN for PAIN LEVEL 5-10, (Reported) Hyoscyamine Sulfate (Hyoscyamine Sulfate) 0.125 Mg Tab.subl, 0.125 MG PO Q4HP PRN for TERMINAL SECRETIONS Use sublingually if unable to swallow Lactulose (Lactulose) 10 Gm/15 Ml Solution, 15 ML PO DAILY PRN for CONSTIPATION, (Reported) TAKE MIDDAY IF NO BOWEL MOVMENT DAY BEFORE Lorazepam (Ativan) 0.5 Mg Tablet, 0.5 MG PO Q4HP PRN for ANXIETY/AGITATION Use sublingually if unable to swallow Morphine Sulfate (Morphine Sulfate) 100 Mg/5 Ml Solution, 0.25-1 ML PO Q2H PRN for PAIN OR DYSPNEA Use sublingually if unable to swallow Ondansetron HCl (Ondansetron HCl) 4 Mg Tablet, 4 MG PO Q6H PRN for NAUSEA OR VOMITING, (Reported) Prochlorperazine Maleate (Prochlorperazine Maleate) 10 Mg Tablet, 10 MG PO Q6H PRN for NAUSEA OR VOMITING, (Reported) Allergies Coded Allergies: No Known Allergies (Unverified , 12/14/19) DELILAH PERALES MD Aug 27, 2020 04:52
== END 2020-08-27 12:50 | disposition home health service (06) | DRG 951 ==
LOC: M ED 09:12 → M ED INP 17:58 → ENRESERVTM 08-26 22:01 → ENRESERVDT 08-26 22:01 → M MS5PR 08-26 23:15
PROVIDERS: ADMIT Family Medicine; ATTEND Internal Medicine Nephrology
DX: Z51.5 Encounter for palliative care (principal); C16.9 Malignant neoplasm of stomach, unspecified; C78.7 Secondary malignant neoplasm of liver and intrahepatic bile duct; C78.00 Secondary malignant neoplasm of unspecified lung; R64 Cachexia; E87.1 Hypo-osmolality and hyponatremia; E46 Unspecified protein-calorie malnutrition; R53.81 Other malaise; K72.90 Hepatic failure, unspecified without coma; Z68.20 Body mass index [BMI] 20.0-20.9, adult; Z79.899 Other long term (current) drug therapy